=== PATIENT | male | born 1990 | race Caucasian/White ===

== ENCOUNTER 2017-07-16 10:44 | Emergency (ER) | payer SELFPAY ==
[~2017-07-16] VITALS: Ht 172.7 cm; Wt 80.0 kg
[2017-07-16 10:54] VITALS: BP 143/90
== END 2017-07-16 17:50 | disposition left against medical advice (07) ==
LOC: ER 11:06
DX: R00.0 Tachycardia, unspecified (principal); Z53.21 Procedure and treatment not carried out due to patient leaving prior to being seen by health care provider
CPT/HCPCS: 93005